=== PATIENT | female | born 2000 | race Caucasian/White ===

== ENCOUNTER → 2024-12-25 | Outpatient (CLI) | payer OTHER | LOC: M CARPUL 12:33 | PROVIDERS: ATTEND Physician Assistant | DX: J45.909 Unspecified asthma, uncomplicated (principal) ==

== ENCOUNTER → 2025-01-15 | Outpatient (CLI) | payer OTHER ==
[~2025-01-15] MED LIST: METHACHOLINE KIT (6 VIAL.NEB PREMIX) INH ONE
== END ==
LOC: M CARPUL 14:18
PROVIDERS: ATTEND Physician Assistant
DX: J45.909 Unspecified asthma, uncomplicated (principal)

== ENCOUNTER 2025-08-01 19:34 | Emergency (ER) | payer OTHER ==
[~2025-08-01] VITALS: Ht 157.5 cm; Wt 74.2 kg
[2025-08-01 19:38] VITALS: TEMP 97.8
[2025-08-01] MEDS: KETOROLAC 60 MG/2 ML VIAL IM ONE (21:51)
[2025-08-01 22:29] VITALS: BP 110/71; O2SAT 99
== END 2025-08-01 22:31 | disposition home or self-care (01) ==
LOC: M ED 19:34
DX: S16.1XXA Strain of muscle, fascia and tendon at neck level, initial encounter (principal); R51.9 Headache, unspecified; Y92.9 Unspecified place or not applicable; Y93.9 Activity, unspecified; Y99.9 Unspecified external cause status; V49.40XA Driver injured in collision with unspecified motor vehicles in traffic accident, initial encounter
CPT/HCPCS: 70450; 72125; 96372; 99283; J1885

== ENCOUNTER 2025-08-13 14:02 | Emergency (ER) | payer OTHER ==
[~2025-08-13] VITALS: Ht 160 cm; Wt 74.0 kg
[2025-08-13 14:09] VITALS: BP 118/74; TEMP 97.9; O2SAT 100
== END 2025-08-13 16:45 | disposition left against medical advice (07) ==
LOC: M ED 14:02
DX: Z53.21 Procedure and treatment not carried out due to patient leaving prior to being seen by health care provider (principal)